=== PATIENT | male | born 1945 | race Caucasian/White ===

== ENCOUNTER 2016-04-23 08:24 | Day surgery (SDC) | payer OTHER ==
[~2016-04-23] VITALS: Ht 167.6 cm; Wt 68.0 kg
[~2016-04-23 08:24] MED LIST: ASPIRIN81 M2 PO; KEFLEX500 MG PO; NEURONTIN300 MG PO; REMERON15 M2 PO; RENAL CAPS SOFTG1 MG PO; RENVELA800 MG PO
[2016-04-23 08:49] VITALS: BP 129/70
[2016-04-23 08:50] LABS: HEMATOCRIT 40.9 % (38.0-50.0); MCH 29.8 PG (29.0-34.0); MEAN PLAT.VOLUME 9.9 uM^3 (9.0-12.4); PLATELET COUNT 471 K/uL (156-360); RBC DIS.WIDTH-CV 16.2 % (11.8-14.6); RBC DIS.WIDTH-SD 53.2 % (39-53); WHITE BLOOD COUNT 11.1 K/uL (4.1-10.2)
[2016-04-23 08:58] LABS: CHLORIDE 97 mEq/L (99-109); SODIUM 138 mEq/L (136-147)
[2016-04-23 08:59] LABS: POTASSIUM 6.4 mEq/L (3.7-5.4)
[2016-04-23 09:00] LABS: GLUCOSE 88 mg/dL (70-99)
[2016-04-23 09:01] LABS: ANION GAP 15 MEQ/L (2-14)
[2016-04-23 09:04] LABS: GFR ESTIMATE (CALCULATED) 6 mL/min/
[2016-04-23 09:05] LABS: UREA NITROGEN (BUN) 50 mg/dL (9-23)
[2016-04-23 10:05] LABS: METH RESISTANT S AUREUS PCR NEGATIVE (NEGATIVE)
[2016-04-23 10:10] LABS: PROBE CHECK PASS; SPECIMEN PROCESSING CONTROL PASS
[2016-04-23 16:08] VITALS: BP 120/78
[2016-04-23 16:56] VITALS: BP 151/70
== END 2016-04-23 17:04 | disposition home or self-care (01) ==
LOC: SDC 08:24
PROVIDERS: Surgery
PROC: 03170JD Bypass Right Brachial Artery to Upper Arm Vein with Synthetic Substitute, Open Approach (ICD-10-PCS; principal; 2016-04-23)
DX: N18.6 End stage renal disease (principal); Z99.2 Dependence on renal dialysis
CPT/HCPCS: 80048; 84132 91; 85027; 87641; 93005; C1874; J0610; J0690; J1644; J2250; J2720; J3010

== ENCOUNTER 2016-05-03 10:30 | Day surgery (SDC) | payer OTHER ==
[~2016-05-03] VITALS: Ht 167.6 cm; Wt 77.2 kg
[2016-05-03 11:50] VITALS: BP 136/64
[2016-05-03 11:53] LABS: HEMATOCRIT 37.5 % (38.0-50.0); MCH 29.9 PG (29.0-34.0); MCHC 31.7 G/DL (30.0-36.0); MCV 94.2 FL (86-99); MEAN PLAT.VOLUME 9.4 uM^3 (9.0-12.4); PLATELET COUNT 362 K/uL (156-360); RBC DIS.WIDTH-CV 15.7 % (11.8-14.6); RED BLOOD COUNT 3.98 M/uL (4.00-5.50)
[2016-05-03 11:54] LABS: CHLORIDE 94 mEq/L (99-109); POTASSIUM 4.1 mEq/L (3.7-5.4); SODIUM 138 mEq/L (136-147)
[2016-05-03 11:56] LABS: GLUCOSE 87 mg/dL (70-99)
[2016-05-03 11:57] LABS: ANION GAP 16 MEQ/L (2-14)
[2016-05-03 12:00] LABS: GFR ESTIMATE (CALCULATED) 13 mL/min/
[2016-05-03 12:01] LABS: UREA NITROGEN (BUN) 20 mg/dL (9-23)
[2016-05-03 12:05] LABS: WHITE BLOOD COUNT 16.1 K/uL (4.1-10.2)
[2016-05-03 12:45] LABS: ABS NEUTROPHIL COUNT 11.56; ANISOCYTOSIS 1+; EOSINOPHIL ABS CT 0.72; EOSINOPHILS 4.5 % (0-5.0); MACROCYTES OCC; PLAT.SUFFICIENCY INCREASED; USER ID SDF
[2016-05-03 13:14] LABS: DELETE MACHINE DIFF? YES
[2016-05-03] MEDS ORDERED: NORCO 5/3251 TABLET PO (17:00)
[2016-05-03 18:42] VITALS: BP 141/67
[2016-05-30] MEDS ORDERED: GABAPENTIN300 MG PO (08:28)
== END 2016-05-03 19:11 | disposition home or self-care (01) ==
LOC: EME 10:30 → SDC 11:53 → 2EASTP 16:29
PROVIDERS: Emergency Medicine
DX: T82.868A Thrombosis due to vascular prosthetic devices, implants and grafts, initial encounter (principal); T82.858A Stenosis of other vascular prosthetic devices, implants and grafts, initial encounter; Y83.2 Surgical operation with anastomosis, bypass or graft as the cause of abnormal reaction of the patient, or of later complication, without mention of misadventure at the time of the procedure; N18.6 End stage renal disease; Z99.2 Dependence on renal dialysis; Z87.891 Personal history of nicotine dependence; D64.9 Anemia, unspecified; M19.90 Unspecified osteoarthritis, unspecified site; Z90.81 Acquired absence of spleen; Z88.1 Allergy status to other antibiotic agents
CPT/HCPCS: 80048; 85025; 85610; 99281; 99284; C1725; C1757; C1769; C1874; C1894; C2628; G0378; J0690; J1644; J2175; J3010

== ENCOUNTER 2016-05-03 11:47 | Day surgery (SDC) | payer OTHER ==
[~2016-05-03] VITALS: Ht 180.3 cm; Wt 76.9 kg
[2016-05-03 11:50] VITALS: BP 136/64
[2016-05-03] MEDS ORDERED: NORCO 5/3251 TABLET PO (17:00)
[2016-05-03 18:42] VITALS: BP 141/67
== END 2016-05-03 19:11 | disposition home or self-care (01) ==
LOC: SDC 11:47 → 2EASTP 11:48
DX: T82.868A Thrombosis due to vascular prosthetic devices, implants and grafts, initial encounter (principal); Y83.2 Surgical operation with anastomosis, bypass or graft as the cause of abnormal reaction of the patient, or of later complication, without mention of misadventure at the time of the procedure; Z99.2 Dependence on renal dialysis; N18.6 End stage renal disease
CPT/HCPCS: 73060; 80048 91; 85027; C1725; C1757; C1769; C1874; C1894; C2628; G0378; J0690; J1644; J2175; J3010

== ENCOUNTER → 2016-05-30 | Outpatient (CLI) | payer OTHER ==
[~2016-05-30] MED LIST changes: +GABAPENTIN300 MG PO; +NORCO 5/3251 TABLET PO
== END | disposition home or self-care (01) ==
LOC: AMB 08:03
PROC: 02PYX3Z Removal of Infusion Device from Great Vessel, External Approach (ICD-10-PCS; principal; 2016-05-30)
DX: Z45.2 Encounter for adjustment and management of vascular access device (principal); N18.6 End stage renal disease

== ENCOUNTER 2016-08-07 08:22 | Day surgery (SDC) | payer OTHER | END 2016-08-07 11:03 | disposition home or self-care (01) | LOC: CATH 08:22 | PROC: 03CY0ZZ Extirpation of Matter from Upper Artery, Open Approach (ICD-10-PCS; principal; 2016-08-07) | PROC: 037Y0ZZ Dilation of Upper Artery, Open Approach (ICD-10-PCS; 2016-08-07) | PROC: 3E0 Administration, Physiological Systems and Anatomical Regions, Introduction (ICD-10-PCS; 2016-08-07) | DX: T82.868A Thrombosis due to vascular prosthetic devices, implants and grafts, initial encounter (principal); N18.6 End stage renal disease; Z99.2 Dependence on renal dialysis | CPT/HCPCS: C1725; C1757; C1769; C1894; C2628; J0690; J1644; J2250; J3010; S0020 ==

== ENCOUNTER 2017-02-04 09:22 | Day surgery (SDC) | payer OTHER ==
[~2017-02-04] VITALS: Ht 167.6 cm; Wt 79.4 kg
[2017-02-04 11:49] LABS: METH RESISTANT S AUREUS PCR NEGATIVE (NEGATIVE)
[2017-02-04 11:53] LABS: PROBE CHECK PASS; SPECIMEN PROCESSING CONTROL PASS
== END 2017-02-04 12:30 | disposition home or self-care (01) ==
LOC: CATH 09:22
PROVIDERS: Surgery
DX: T82.41XA Breakdown (mechanical) of vascular dialysis catheter, initial encounter (principal); N18.6 End stage renal disease; Z99.2 Dependence on renal dialysis; I99.8 Other disorder of circulatory system; Z79.82 Long term (current) use of aspirin
CPT/HCPCS: 87641; C1725; C1769; C1874; C1894; J1644; J2250; J3010

== ENCOUNTER 2017-03-19 14:01 | Day surgery (SDC) | payer OTHER ==
[~2017-03-19] VITALS: Ht 167.6 cm; Wt 79.4 kg
[~2017-03-19 14:01] MED LIST changes: -ASPIRIN81 M2 PO; +LO-DOSE ASPIRIN81 M1 PO
[2017-03-19 15:09] VITALS: BP 156/74
[2017-03-19 15:23] LABS: HEMATOCRIT 41.8 % (38.0-50.0); MCV 97.2 FL (86-99)
[2017-03-19 15:45] LABS: ANION GAP 16 MEQ/L (2-14); CHLORIDE 103 MEQ/L (99-109); GFR ESTIMATE (CALCULATED) 4 mL/min/; GLUCOSE 79 mg/dL (70-99); POTASSIUM 4.8 MEQ/L (3.7-5.4); SAMPLE HEMOLYSIS CHECK 0; SAMPLE ICTERIC CHECK 0; SAMPLE LIPEMIA CHECK 0; SODIUM 139 MEQ/L (136-147); UREA NITROGEN (BUN) 52 mg/dL (9-23)
[2017-03-19 16:15] LABS: METH RESISTANT S AUREUS PCR NEGATIVE (NEGATIVE)
[2017-03-19 16:25] LABS: PROBE CHECK PASS; SPECIMEN PROCESSING CONTROL PASS
== END 2017-03-19 18:40 | disposition home or self-care (01) ==
LOC: SDC 14:01
PROVIDERS: Surgery
DX: T82.868A Thrombosis due to vascular prosthetic devices, implants and grafts, initial encounter (principal); N18.6 End stage renal disease; Z99.2 Dependence on renal dialysis; Z79.82 Long term (current) use of aspirin
CPT/HCPCS: 80048; 85014; 85018; 87641; 93005; C1750; C1757; C1769; C1894; C2628; J0690; J1644; J2250; J2720; J3010; S0020

== ENCOUNTER 2017-06-10 10:35 | Day surgery (SDC) | payer OTHER ==
[~2017-06-10] VITALS: Ht 180.3 cm; Wt 79.3 kg
[2017-06-10 11:05] VITALS: BP 131/68
[2017-06-10 11:07] LABS: HEMATOCRIT 37.7 % (38.0-50.0); HEMOGLOBIN 12.5 G/DL (12.5-16.6); MCH 31.5 PG (29.0-34.0); MCHC 33.2 G/DL (30.0-36.0); PLATELET COUNT 380 K/uL (156-360); RBC DIS.WIDTH-CV 14.4 % (11.8-14.6); RBC DIS.WIDTH-SD 50.3 % (39-53); RED BLOOD COUNT 3.97 M/uL (4.00-5.50); WHITE BLOOD COUNT 16.6 K/uL (4.1-10.2)
[2017-06-10 11:18] LABS: CHLORIDE 88 mEq/L (99-109); POTASSIUM 4.4 mEq/L (3.7-5.4); SODIUM 133 mEq/L (136-147)
[2017-06-10 11:19] LABS: GLUCOSE 85 mg/dL (70-99)
[2017-06-10 11:23] LABS: CREATININE 7.9 mg/dL (0.6-1.3); GFR ESTIMATE (CALCULATED) 7 mL/min/ (58.99-99999)
[2017-06-10 11:24] LABS: UREA NITROGEN (BUN) 29 mg/dL (9-23)
[2017-06-10 17:00] VITALS: BP 128/86
== END 2017-06-10 18:02 | disposition home or self-care (01) ==
LOC: SDC 10:35
PROVIDERS: Surgery
PROC: 03180JD Bypass Left Brachial Artery to Upper Arm Vein with Synthetic Substitute, Open Approach (ICD-10-PCS; principal; 2017-06-10)
PROC: 3E03317 Introduction of Other Thrombolytic into Peripheral Vein, Percutaneous Approach (ICD-10-PCS; principal; 2017-06-10)
DX: N18.6 End stage renal disease (principal); Z99.2 Dependence on renal dialysis
CPT/HCPCS: 80048; 85027; C1768; C2628; J1170; J1644; J2250; J2405; J2720; J2765; J3010; S0020

== ENCOUNTER 2017-06-17 10:02 | Day surgery (SDC) | payer OTHER ==
[~2017-06-17] VITALS: Ht 180.3 cm; Wt 79.4 kg
== END 2017-06-17 12:17 | disposition home or self-care (01) ==
LOC: CATH 10:02
DX: T82.868A Thrombosis due to vascular prosthetic devices, implants and grafts, initial encounter (principal); Y83.2 Surgical operation with anastomosis, bypass or graft as the cause of abnormal reaction of the patient, or of later complication, without mention of misadventure at the time of the procedure; N18.6 End stage renal disease; Z99.2 Dependence on renal dialysis
CPT/HCPCS: 87641; C1725; C1757; C1769; C1874; C1894; C2628; J0690; J1644; J2250; J3010; S0020

== ENCOUNTER 2017-07-22 09:40 | Day surgery (SDC) | payer OTHER ==
[~2017-07-22] VITALS: Ht 172.7 cm; Wt 79.3 kg
[2017-07-22 10:22] VITALS: BP 142/72
[2017-07-22 10:31] LABS: HEMATOCRIT 40.8 % (38.0-50.0); HEMOGLOBIN 13.3 G/DL (12.5-16.6); MCH 32.3 PG (29.0-34.0); MCHC 32.6 G/DL (30.0-36.0); PLATELET COUNT 283 K/uL (156-360); RBC DIS.WIDTH-CV 14.3 % (11.8-14.6); RED BLOOD COUNT 4.12 M/uL (4.00-5.50); WHITE BLOOD COUNT 13.8 K/uL (4.1-10.2)
[2017-07-22 10:53] LABS: CHLORIDE 93 MEQ/L (99-109); CREATININE 7.1 MG/DL (0.6-1.3); GFR ESTIMATE (CALCULATED) 8 mL/min/ (58.99-99999); GLUCOSE 92 mg/dL (70-99); POTASSIUM 4.3 MEQ/L (3.7-5.4); SODIUM 136 MEQ/L (136-147); UREA NITROGEN (BUN) 17 mg/dL (9-23)
[2017-07-22 13:20] VITALS: BP 126/62
[2017-07-22 14:00] VITALS: BP 125/59
== END 2017-07-22 14:12 | disposition home or self-care (01) ==
LOC: SDC 09:40
PROVIDERS: Surgery
PROC: 05PY0JZ Removal of Synthetic Substitute from Upper Vein, Open Approach (ICD-10-PCS; principal; 2017-07-22)
DX: T82.7XXA Infection and inflammatory reaction due to other cardiac and vascular devices, implants and grafts, initial encounter (principal); Y83.2 Surgical operation with anastomosis, bypass or graft as the cause of abnormal reaction of the patient, or of later complication, without mention of misadventure at the time of the procedure; N18.6 End stage renal disease; Z99.2 Dependence on renal dialysis
CPT/HCPCS: 80048; 85027; 87641; 93005; J0690; J1644; J2250; J2720; S0020